=== PATIENT | female | born 1970 | race Caucasian/White ===

== ENCOUNTER → 2017-01-20 | Outpatient (CLI) | payer MEDICAID | LOC: MW.CHIM 13:24 | PROVIDERS: ATTEND Internal Medicine | DX: R07.9 Chest pain, unspecified (principal) | CPT/HCPCS: 93005 ==

== ENCOUNTER → 2017-01-27 | Outpatient (CLI) | payer MEDICAID, OTHER ==
--- NOTE | 2017-01-29 17:59 | ECHO ---
EXAM DATE: 01/27/17 The echocardiogram report can be seen in this patient's EMR (Electronic Medical Record) in the Reports section. RUSSELL
== END ==
LOC: MW.US 12:47
PROVIDERS: ATTEND Internal Medicine
DX: R07.89 Other chest pain (principal)
CPT/HCPCS: 93270; 93306

== ENCOUNTER 2017-02-03 08:48 | Day surgery (SDC) | payer MEDICAID ==
[~2017-02-03 08:48] MED LIST: Lactated Ringers 1,000 ML IV SCH; Lidocaine 2% 5 ML SDV ONE; Midazolam 1 MG/ML 2 ML SDV ONE; Ondansetron 4 MG/2 ML SDV ONE; Propofol 200 MG/20 ML SDV ONE; Sodium Chloride 0.9% 10 ML Syringe FLUSH PRN; Sodium Chloride 0.9% 2.5 ML Syringe FLUSH PRN; fentaNYL 250 MCG/5 ML SDV ONE
--- NOTE | 2017-02-03 09:47 | PCM.PREANE ---
Preanesthetic Assessment - Procedure Proposed Procedure: Hysteroscopy and endometrial ablation - Anesthesia/Transfusion/Family Hx Anesthesia History: Prior Anesthesia Without Reaction Family History of Anesthesia Reaction: No Transfusion History: No Prior Transfusion(s) Intubation History: Unknown - Review of Systems General: No Symptoms, Other (pigmentation glaucoma) Pulmonary: No Symptoms Cardiovascular: Palpitations (plus family hx of cardiac problems; currently Holter monitored) Gastrointestinal: No symptoms Neurological: No Symptoms Other: Reports: Easy Bleeding (uterine), Anxiety - Physical Assessment NPO Status Date: 02/02/17 NPO Status Time: 22:00 Height: 5 ft 2 in Weight: 155 lb ASA Class: 2 Mental Status: Alert & Oriented x3 Airway Class: Mallampati = 2 Dentition: Reports: Normal Dentition Thyro-Mental Finger Breadths: 3 Mouth Opening Finger Breadths: 3 ROM/Head Extension: Full Lungs: Clear to auscultation, Normal respiratory effort Cardiovascular: Regular Rate, Regular Rhythm, No Murmurs - Lab Values: Laboratory Last Values WBC 5.55 K/uL (4.0-11.0) 02/02/17 11:10 RBC 4.66 M/uL (4.30-5.90) 02/02/17 11:10 Hgb 13.5 g/dL (12.0-16.0) 02/02/17 11:10 Hct 42.3 % (36.0-46.0) 02/02/17 11:10 MCV 90.8 fL (80.0-98.0) 02/02/17 11:10 MCH 29.0 pg (27.0-32.0) 02/02/17 11:10 MCHC 31.9 g/dL (31.0-37.0) 02/02/17 11:10 RDW Std Deviation 45.6 fl (28.0-62.0) 02/02/17 11:10 RDW Coeff of Ish 14 % (11.0-15.0) 02/02/17 11:10 Plt Count 268 K/uL (150-400) 02/02/17 11:10 MPV 10.60 fL (7.40-12.00) 02/02/17 11:10 Nucleated RBC % 0.0 /100WBC 02/02/17 11:10 Nucleated RBCs # 0 K/uL 02/02/17 11:10 HCG, Quant < 1.2 mIU/mL 02/02/17 11:10 - Allergies Allergies/Adverse Reactions: Allergies Allergy/AdvReac Type Severity Reaction Status Date / Time No Known Allergies Allergy Verified 04/02/16 18:53 - Blood Blood Available: No Product(s) Available: None - Anesthesia Plan Pre-Op Medication Ordered: None - Acknowledgements Anesthesia Type Planned: General Anesthesia (LMA) Pt an Appropriate Candidate for the Planned Anesthesia: Yes Alternatives and Risks of Anesthesia Discussed w Pt/Guardian: Yes Pt/Guardian Understands and Agrees with Anesthesia Plan: Yes PreAnesthesia Questionnaire HEENT History: Reports: Other (see below) Other HEENT History: wears contacts/glasses Cardiovascular History: Reports: Other (see below) Other Cardiovascular History: pt states she "just found out she has a leaky heart valve", is presently on a holter monitor for 30 days. 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 Musculoskeletal History: Reports: Fracture Other Musculoskeletal History: hx fx foot Neurological History: Reports: Migraines - Past Surgical History Head Surgeries/Procedures: Reports: None GI Surgical History: Reports: Cholecystectomy Female Surgical History: Reports: D&C - SUBSTANCE USE Smoking Status *Q: Never Smoker Recreational Drug Use History: No - HOME MEDS Home Medications: Home Meds Latanoprost 1 drop EYEBOTH BEDTIME 04/02/16 [History] Levonorgestrel-Ethin Estradiol [Falmina-28 Tablet] 1 tab PO ASDIRECTED 01/30/17 [History] - CURRENT (IN HOUSE) MEDS Current Meds: Current Medications Lactated Ringer's (Ringers, Lactated) 1,000 mls @ 125 mls/hr IV ASDIRECTED PENDING SALE TO [facility] Last Admin: 02/03/17 09:20 Dose: 125 mls/hr Sodium Chloride (Saline Flush) 10 ml FLUSH ASDIRECTED PRN PRN Reason: Keep Vein Open Sodium Chloride (Saline Flush) 2.5 ml FLUSH ASDIRECTED PRN PRN Reason: Keep Vein Open Discontinued Medications Fentanyl (Sublimaze) Confirm Administered Dose 250 mcg .ROUTE .STK-MED ONE Stop: 02/03/17 07:10 Lidocaine (Xylocaine-Mpf 2%) Confirm Administered Dose 5 ml .ROUTE .STK-MED ONE Stop: 02/03/17 07:10 Midazolam HCl (Versed 1 Mg/Ml) Confirm Administered Dose 2 mg .ROUTE .STK-MED ONE Stop: 02/03/17 07:10 Ondansetron HCl (Zofran) Confirm Administered Dose 4 mg .ROUTE .STK-MED ONE Stop: 02/03/17 07:10 Propofol (Diprivan 20 Ml) Confirm Administered Dose 200 mg .ROUTE .STK-MED ONE Stop: 02/03/17 07:10
--- NOTE | 2017-02-03 10:49 | PCM.OPNOTE ---
- General Post-Op/Procedure Note Date of Surgery/Procedure: 02/03/17 Operative Procedure(s): Operative hysteroscopy/polypectomy/curretage of endometrium/thermal endometrial ablation Findings: left fundal polypoid lesion x 2 Pre Op Diagnosis: Menorrhagia and dysmenorrhea Post-Op Diagnosis: Same Anesthesia Technique: General LMA Primary Surgeon: Christa Russell Pathology: endometrial polyp x 2--left cornual region Fluid Replacement, Intraop: 1,100 (Fluid deficit 155 ml NS--hysteroscopy) EBL in mLs: 15 Complications: None known Condition: Good Free Text/Narrative:: Dictation [id number]
[2017-02-03] MEDS: fentaNYL 100 MCG/2 ML SDV IVPUSH PRN ×2 (11:00→11:06)
[2017-02-03] MEDS ORDERED: Ketorolac 30 MG/ML SDV IVPUSH ONE (11:04)
[2017-02-03] MEDS ORDERED: Ketorolac 30 MG/ML SDV ONE (11:08)
[2017-02-03] MEDS ORDERED: diphenhydrAMINE 50 MG/ML SDV IVPUSH ONE (11:19)
--- NOTE | 2017-02-03 11:25 | PCM.POSTAN ---
POST ANESTHESIA ASSESSMENT - MENTAL STATUS Mental Status: alert, oriented - RESPIRATORY Respiratory Status: respiratory rate WNL, airway patent, O2 saturation stable - CARDIOVASCULAR CV Status: pulse rate WNL, blood pressure stable - GASTROINTESTINAL GI Status: no symptoms - PAIN Pain Score: 2 - POST OP HYDRATION Hydration Status: adequate & stable - OBSERVATIONS Free Text/Narrative:: no anesthesia problems
[2017-02-03 13:19] VITALS: BP 92/50
--- NOTE | 2017-02-04 12:08 | OR ---
SURGEON: Christa Russell M.D. DATE OF PROCEDURE: 02/03/2017 PREOPERATIVE DIAGNOSIS: Menorrhagia and dysmenorrhea. POSTOPERATIVE DIAGNOSIS: Menorrhagia and dysmenorrhea. PROCEDURE: Operative hysteroscopy with polypectomy, curettings of endometrium, and thermal endometrial ablation. ANESTHESIA: General LMA. ESTIMATED BLOOD LOSS: 15 mL. FLUIDS: 1100 mL crystalloid. Fluid deficit 155 mL normal saline. COMPLICATIONS: None. DISPOSITION: The patient to PACU, stable. INDICATIONS: Judith is a 46-year-old female, who is having ongoing difficulties with menorrhagia and dysmenorrhea. She has a benign endometrial biopsy, and sonohysterogram reveals a posterior polypoid lesion. Therefore, she would like to undergo surgical evaluation for hysteroscopy polypectomy, and at that time, she would like to undergo thermal endometrial ablation. Risks of procedures have been discussed. Proper consent obtained. The patient was taken to the operating room, where she underwent general LMA, was placed in modified dorsal lithotomy position, was prepped and draped in the usual sterile fashion. SCDs to lower extremities. The bladder was drained. Time-out was performed. A speculum was introduced in the vagina. The posterior lip of the cervix was grasped with an Allis clamp. The cervix was sounded to be approximately 4 cm in total length. The endometrial cavity sounded to 8 cm. The cervix was gently dilated to 5 mm. MyoSure hysteroscope was now introduced using normal saline as the distention media. The uterine cavity was able to be visualized. The right and left ostia were able to be visualized. There was a left ostial polypoid lesion x2 noted, and along the mid fundal region, there is just a proliferative thickened endometrium. Using MyoSure resecting device, the polyps were now removed followed by curettings of the remainder of the endometrium. All the specimen will be sent to pathology. Photographs taken post polypectomy. The MyoSure hysteroscope was now gently removed. The cervix was dilated to 8 mm. The Christina device was now prepped according to home care liaison protocol. The length was set to 4 and the device was now introduced into the uterine cavity. The fundus initially was not able to gauge the length in the green zone. Therefore, removed the device, reset the gauge and once again could not get a clear. Proceeding therefore, I removed the device once again, reset the length, which was felt to be accurate and turned the monitor off and turned it back on again with resetting the device and now introducing into the uterine cavity to the level of the fundus and insufflating the balloon, the device was cleared to proceed with the ablation. The 120 seconds ablative process now ensued. At the end of this, the balloon was desufflated. Device collapsed and removed from the endometrial cavity. Hemostasis appears evident. All instruments removed from the vagina. Sponge count and instrument count correct x2. The patient has tolerated the procedure well. She will go to PACU in stable condition. Specimens to pathology. QUYEN / TIGIST /[id number]
== END 2017-02-03 12:35 | disposition home or self-care (01) ==
LOC: MW.SDS 08:48
PROVIDERS: ATTEND Obstetrics & Gynecology
DX: N84.0 Polyp of corpus uteri (principal); Z90.49 Acquired absence of other specified parts of digestive tract; Z79.899 Other long term (current) drug therapy
CPT/HCPCS: 36415; 58563; 84702; 85027; J1885; J2250; J2405; J3010; J7120; 00952; 88305; J2704

== ENCOUNTER → 2017-02-05 | Outpatient (CLI) | payer MEDICAID, OTHER ==
--- NOTE | 2017-02-05 08:14 | PCM.PRNOTE ---
- Free Text/Narrative Note: Exercise MIBI Indication CP Sestamibi Tc99 25 MCi was given at the peak HR Patient was brought to the stress test lab in postabsorptive state verbal and paper consent was obtained from patient Vital signs at resting state blood pressure of 104/78 with a heart rate of 97 EKG shows sinus rhythm no ST changes no Q waves Maximal heart rate of 174 and target heart rate is 147 Patient reached the target heart rate, completed stage III Sorin protocol Peak blood pressure is 134/74 Total exercise time of 9.[address] changes with a peak heart rate no arrhythmia METS 10.1 No symptom of chest pain or feeling dizzy Impression Normal hemodynamics, normal chronotropic, adequate exercise capacity, negative for ischemia on EKG Plan Nuclear portion pending
--- NOTE | 2017-02-05 13:54 | NM ---
EXAMINATION: Nuclear medicine myocardial perfusion study with exercise stress test. HISTORY: Chest pain. PROCEDURE: Patient exercised according to Sorin protocol for 9 minutes and 33 seconds and achieved maximal hear t rate of 174 beats per minute. Adequate exercise. Following intravenous administration of 25.9 mCi of technetium 99m sestamibi, stress and rest SPECT images including gating imaging was performed. FINDINGS: Stress and rest myocardial SPECT images demonstrates uniform tracer uptake throughout the left ventr icular myocardium. Review of gated images demonstrates normal wall motion, contractility and wall thickening. The left ventricular ejection fraction is 71 %. The left ventricular chamber size is normal. IMPRESSION: 1. No evidence of myocardial ischemia. 2. Normal ventricular chamber size and function with ejection fraction of 71 %.
== END ==
LOC: MW.NM 07:27
PROVIDERS: ATTEND Internal Medicine
DX: R07.89 Other chest pain (principal)
CPT/HCPCS: 78451; 93017; A9500

== ENCOUNTER → 2017-02-09 | Outpatient (CLI) | payer MEDICAID, OTHER ==
--- NOTE | 2017-02-10 09:52 | CR ---
EXAMINATION: Left ankle HISTORY: Injury COMPARISON: None TECHNIQUE: 3 views FINDINGS/IMPRESSION: No acute osseous abnormality, dislocation, or fracture identified. Bone mineral ization and joint spaces appear normal. Mild soft tissue swelling is noted over the lateral malleolu s.
== END | disposition home or self-care (01) ==
LOC: MW.CHFP 15:03
PROVIDERS: ATTEND Physician Assistant
DX: S99.912A Unspecified injury of left ankle, initial encounter (principal); M25.572 Pain in left ankle and joints of left foot; M79.89 Other specified soft tissue disorders
CPT/HCPCS: 73610-26-LT; 73610-LT

== ENCOUNTER 2021-07-09 07:14 | Day surgery (SDC) | payer BC ==
[~2021-07-09 07:14] MED LIST changes: -Lidocaine 2% 5 ML SDV ONE; -Midazolam 1 MG/ML 2 ML SDV ONE; -Ondansetron 4 MG/2 ML SDV ONE; -Propofol 200 MG/20 ML SDV ONE; +Sodium Chloride 0.9% 10 ML SDV IV PRN; -fentaNYL 250 MCG/5 ML SDV ONE
[2021-07-09] MEDS ORDERED: Propofol 200 MG/20 ML SDV ONE (07:47)
--- NOTE | 2021-07-09 07:47 | PCM.PREANE ---
Preanesthetic Assessment - Procedure Proposed Procedure: Colonoscopy - Anesthesia/Transfusion/Family Hx Anesthesia History: Prior Anesthesia Without Reaction Family History of Anesthesia Reaction: No Transfusion History: No Prior Transfusion(s) Intubation History: Unknown - Review of Systems General: No Symptoms Pulmonary: No Symptoms Cardiovascular: No Symptoms Gastrointestinal: No Symptoms (Occas HB- PRN Prilosec) Neurological: No Symptoms Other: Reports: None - Physical Assessment NPO Status Date: 07/07/21 NPO Status Time: 18:00 (Solids, >8Hr Liq) Height: 5 ft 2 in Weight: 80.286 kg (Obesity) ASA Class: 2 Mental Status: Alert & Oriented x3 Airway Class: Mallampati = 2 Dentition: Reports: Normal Dentition Thyro-Mental Finger Breadths: 3 Mouth Opening Finger Breadths: 3 ROM/Head Extension: Full Lungs: Clear to Auscultation, Normal Respiratory Effort Cardiovascular: Regular Rate, Regular Rhythm - Lab Values: Laboratory Last Values Urine HCG, Qual NEGATIVE (NEGATIVE) 07/09/21 07:24 - Allergies Allergies/Adverse Reactions: Allergies Allergy/AdvReac Type Severity Reaction Status Date / Time No Known Allergies Allergy Verified 07/03/21 14:23 - Acknowledgements Anesthesia Type Planned: General Anesthesia Pt an Appropriate Candidate for the Planned Anesthesia: Yes Alternatives and Risks of Anesthesia Discussed w Pt/Guardian: Yes Pt/Guardian Understands and Agrees with Anesthesia Plan: Yes PreAnesthesia Questionnaire HEENT History: Reports: Glaucoma Other HEENT History: wears contacts/glasses Cardiovascular History: Reports: None Respiratory History: Reports: None Gastrointestinal History: Reports: Cholelithiasis, GERD Other Gastrointestinal History: takes occasional OTC Prilosec for GERD Genitourinary History: Reports: None 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: , 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 Musculoskeletal History: Reports: Fracture Other Musculoskeletal History: hx fx foot Neurological History: Reports: Other (See Below) Other Neuro History: hx of motion sickness Psychiatric History: Reports: Anxiety, Other (See Below) Other Psychiatric History: Claustrophobia Endocrine/Metabolic History: Reports: Obesity/BMI 30+ Hematologic History: Reports: None Immunologic History: Reports: None Oncologic (Cancer) History: Reports: None Dermatologic History: Reports: None - Past Surgical History Head Surgeries/Procedures: Reports: None Cardiovascular Surgical History: Reports: None Respiratory Surgical History: Reports: None GI Surgical History: Reports: Cholecystectomy Female Surgical History: Reports: D&C, Other (See Below) Other Female Surgeries/Procedures: Hysteroscopy Endocrine Surgical History: Reports: None Musculoskeletal Surgical History: Reports: None Oncologic Surgical History: Reports: None Dermatological Surgical History: Reports: None - SUBSTANCE USE Tobacco Use Status *Q: Never Tobacco User Recreational Drug Use History: No - HOME MEDS Home Medications: Home Meds Latanoprost 1 drop EYEBOTH BEDTIME 04/02/16 [History] Cholecalciferol (Vitamin D3) [Decara] 1,250 mcg PO WEEKLY 07/03/21 [History] Dorzolamide HCl/Pf [Dorzolamide 2% Eye Drop] 1 drop EYELF BID 07/03/21 [History] Multivitamin 1 tab PO DAILY 07/03/21 [History] Phentermine HCl 15 mg PO DAILY 07/03/21 [History] Timolol Maleate/PF [Timolol Maleate 0.5% Eye Drop] 1 drop EYELF BID 07/03/21 [History] Topiramate [Topiramate ER] 50 mg PO BID 07/03/21 [History] buPROPion [Wellbutrin SR] 150 mg PO DAILY 07/03/21 [History] traZODone HCl [Trazodone HCl] 25 mg PO BEDTIME 07/03/21 [History] - CURRENT (IN HOUSE) MEDS Current Meds: Current Medications Lactated Ringer's (Ringers, Lactated) 1,000 mls @ 125 mls/hr IV ASDIRECTED [facility]CY Sodium Chloride (Sodium Chloride 0.9% 10 Ml Syringe) 10 ml FLUSH ASDIRECTED PRN PRN Reason: Keep Vein Open Sodium Chloride (Sodium Chloride 0.9% 2.5 Ml Syringe) 2.5 ml FLUSH ASDIRECTED PRN PRN Reason: Keep Vein Open Sodium Chloride (Sodium Chloride 0.9% 10 Ml Syringe) 10 ml FLUSH ASDIRECTED PRN PRN Reason: Keep Vein Open Sodium Chloride (Sodium Chloride 0.9% 2.5 Ml Syringe) 2.5 ml FLUSH ASDIRECTED PRN PRN Reason: Keep Vein Open Sodium Chloride (Sodium Chloride 0.9% 10 Ml Sdv) 10 ml IV ASDIRECTED PRN PRN Reason: IV Use
[2021-07-09] MEDS ORDERED: Midazolam 1 MG/ML 2 ML SDV ONE (07:48)
--- NOTE | 2021-07-09 10:29 | PCM.OPNOTE ---
- General Post-Op/Procedure Note Date of Surgery/Procedure: 07/09/21 Operative Procedure(s): Screening colonoscopy Findings: Normal colonoscopy Pre Op Diagnosis: Screening colonoscopy Post-Op Diagnosis: Normal colonoscopy Anesthesia Technique: MAC Primary Surgeon: Michelle Duarte Condition: Good
[2021-07-09 10:39] VITALS: PULSE 66
--- NOTE | 2021-07-09 10:44 | PCM.POSTAN ---
POST ANESTHESIA ASSESSMENT - MENTAL STATUS Mental Status: Alert, Oriented - VITAL SIGNS Vital Signs: Last Vital Signs Temp 97.3 F 07/09/21 07:22 Pulse 66 07/09/21 10:38 Resp 15 07/09/21 10:38 BP 98/59 L 07/09/21 10:38 Pulse Ox 99 07/09/21 10:38 - RESPIRATORY Respiratory Status: Respiratory Rate WNL, Airway Patent, O2 Saturation Stable - CARDIOVASCULAR CV Status: Pulse Rate WNL, Blood Pressure Stable - GASTROINTESTINAL GI Status: No Symptoms - PAIN Pain Score: 0 - POST OP HYDRATION Hydration Status: Adequate & Stable
--- NOTE | 2021-07-09 10:45 | PCM48HPAN ---
Post Anesthesia Note - EVALUATION WITHIN 48HRS OF ANESTHETIC Vital Signs in Normal Range: Yes Patient Participated in Evaluation: Yes Respiratory Function Stable: Yes Airway Patent: Yes Cardiovascular Function Stable: Yes Hydration Status Stable: Yes Pain Control Satisfactory: Yes Nausea and Vomiting Control Satisfactory: Yes Mental Status Recovered: Yes Vital Signs: Last Vital Signs Temp 97.3 F 07/09/21 07:22 Pulse 66 07/09/21 10:38 Resp 15 07/09/21 10:38 BP 98/59 L 07/09/21 10:38 Pulse Ox 99 07/09/21 10:38 - COMMENTS/OBSERVATIONS Free Text/Narrative:: Pt doing well post-op. VSS. No apparent anesthetic complications. Dr. Greg Corral
[2021-07-09 10:47] VITALS: BP 95/56
--- NOTE | 2021-07-09 12:47 | OR ---
SURGEON: MICHELLE DUARTE MD DATE OF PROCEDURE: 07/09/2021 PREOPERATIVE DIAGNOSIS: Screening colonoscopy. POSTOPERATIVE DIAGNOSIS: Screening colonoscopy. PROCEDURE PERFORMED: Screening colonoscopy. PRIMARY SURGEON: Michelle Duarte MD ANESTHESIA: MAC. INSTRUMENT USED: Olympus colonoscope. EXTENT OF THE EXAM: To the cecum. PREPARATION: Good. LIMITATIONS: None. INDICATIONS FOR EXAMINATION: The patient is a 50-year-old female who presents for screening colonoscopy. I explained the procedure, expected perioperative course, and the risks. She verbalized understanding and wishes to proceed. PROCEDURE IN DETAIL: The patient was brought to the endoscopy suite and placed in the left lateral decubitus position. A time-out was completed verifying the patient's name, age, date of , allergies, and procedure to be performed. Monitored anesthesia care was induced and continuous oxygen was provided via nasal cannula throughout the procedure. After adequate sedation was achieved, a digital rectal exam was performed. This exam was within normal limits. A well-lubricated colonoscope was inserted in the rectum and advanced under direct visualization to the level of the cecum. The cecum was identified by both visual and anatomic landmarks. A photograph was taken of the cecal cap; however, I was unable to retroflex the scope within the cecum due to looping of the scope within the sigmoid colon. The scope was then fully withdrawn while examining the color, texture, anatomy, and integrity of the mucosa from the cecum to the anal canal. The findings were consistent with normal colonic mucosa. The scope was brought into the rectum and retroflexed to allow visualization of the anal canal opening. This appeared normal and photograph was taken. The scope was then straightened out and fully withdrawn. The cecum to anus time was 7 minutes. The patient tolerated the procedure well, was transferred to the PACU in stable condition. ENDOSCOPIC DIAGNOSIS: Normal colonoscopy. RECOMMENDATIONS: Follow up in clinic in 10 years. TINY / TIGIST /[id number]
== END 2021-07-09 11:05 | disposition home or self-care (01) ==
LOC: MW.SDS 07:14
PROVIDERS: ATTEND Surgery
DX: Z12.11 Encounter for screening for malignant neoplasm of colon (principal); E66.9 Obesity, unspecified; Z79.899 Other long term (current) drug therapy; Z90.49 Acquired absence of other specified parts of digestive tract; Z98.890 Other specified postprocedural states; Z68.32 Body mass index [BMI] 32.0-32.9, adult
CPT/HCPCS: 45378; 81025; J2250; J2704; J7120

== ENCOUNTER 2021-09-19 13:35 | Emergency (ER) | payer BC ==
[2021-09-19] MEDS ORDERED: Orphenadrine 60 MG/2 ML Inj IM ONE (14:29)
[2021-09-19] MEDS ORDERED: Ketorolac 60 MG/2 ML SDV IM ONE (14:29)
--- NOTE | 2021-09-19 15:05 | EDM.PDOC ---
ED HPI GENERAL MEDICAL PROBLEM - General Chief Complaint: General Stated Complaint: PINCHED NERVE NECK Time Seen by Provider: 09/19/21 13:39 Source of Information: Reports: Patient History Limitations: Reports: No Limitations - History of Present Illness INITIAL COMMENTS - FREE TEXT/NARRATIVE: HISTORY AND PHYSICAL: History of present illness: Patient is a 51-year-old female who presents to the emergency room with complaints of left lateral neck pain since waking up. She states last night she felt a pinching sensation to the left posterior and lateral neck which she describes as "felt like something was getting cut off". She states the pain was sharp and lasted 2 to 3 minutes. She had to pace around the living room until up subsided. Patient denies any fever, chills, headache, change in vision, syncope or near syncope. Denies any chest pain, back pain, shortness of breath or cough. Denies any abdominal pain, nausea, vomiting, diarrhea, constipation or dysuria. Has not noted any blood in urine or stool. Patient has been eating and drinking appropriately. No recent travel or sick contacts. Review of systems: As per history of present illness and below otherwise all systems reviewed and negative. Past medical history: As per history of present illness and as reviewed below otherwise noncontributory. Surgical history: As per history of present illness and as reviewed below otherwise noncontributory. Social history: See social history for further information Family history: As per history of present illness and as reviewed below otherwise noncontr ibutory. Physical exam: General: Well developed and well nourished. Alert and orientated x 3. Nontoxic in appearance and in no acute distress. Vital signs are stable and have been reviewed by me. Nursing notes were reviewed. HEENT: Atraumatic, normocephalic, pupils equal and reactive bilaterally, negative for conjunctival pallor or scleral icterus, mucous membranes moist, TMs normal bilaterally, throat clear, neck supple, nontender, trachea midline. No drooling or trismus noted. No meningeal signs. No hot potato voice noted. Lungs: Clear to auscultation bilaterally. No wheezes, rales, or rhonchi. Chest nontender. Normal work of breathing, no accessory muscles used. Heart: S1S2, regular rate and rhythm without overt murmur, gallops, or rubs. No JVD. No peripheral edema Abdomen: Soft, nondistended, nontender. Normoactive bowel sounds. Negative for masses or costovertebral tenderness. C-spine/Back: No pinpoint vertebral tenderness upon palpation. No crepitus, step-offs or obvious deformities. Mild/moderate pain of left paraspinous cervical neck into the sternocleidomastoid muscle. Patient is ambulatory into the emergency room without difficulty or deficit. Able to rock back on heels and walk on toes. Denies any urinary or fecal incontinence. Denies any numbness, tingling or saddle paresthesia. No concerns of serious infection, fracture or cord compression, or cauda equina syndrome. Deep tendon reflexes brisk bilaterally. Skin: Intact, warm, dry. No lesions or rashes noted. Hematologic: No petechiae or purpra. Mucosa appropriate color and normal nail bed color and refill. Extremities: Atraumatic, moves all extremities per self without deficits, able to rotate at shoulder without problems. Pain with movement of the neck side to side or up and down. Neurovascular unremarkable. Neuro: Awake, alert, oriented. Cranial nerves II through XII unremarkable. Cerebellum unremarkable. Motor and sensory unremarkable throughout. Exam nonfocal. Psychiatric: Mood and affect are appropriate. Normal thought process. Answering questions appropriately. Please note that the patient was seen and evaluated during the 2019 SARS-CoV-2 novel coronavirus pandemic period. Community viral transmission is ongoing at time of this encounter and the emergency department is operating under pandemic response procedures. Medical Decision Making: Patient is a 51-year-old female who presents to the emergency room with complaints of left sided neck pain. Pain with range of motion describes it as a sharp pinching spasm. We discussed imaging, she would like to move forward with a CT scan at this time. No neurological symptoms are noted. CT shows no acute fracture or traumatic malalignment of the cervical spine. Mild disc space narrowing at C5-C6. Moderate neural foraminal narrowing on the right at C5-C6. I have talked with the patient about today's findings, in addition to providing specific details for plan of care. Patient does feel improvement after IM medications. Reassessment at the time of disposition demonstrates that the patient is in no acute distress. The patient is stable for discharge, counseling was provided and we discussed in great detail signs and symptoms that would prompt them to return to the Emergency Department. Medication, follow up and supportive care measures were reviewed and discussed. Voices understanding and is agreeable to plan of care. Denies any further questions or concerns at this time. Diagnostics: CT neck Therapeutics: Norflex, Toradol Prescription: Flexeril, diclofenac Impression: Muscle strain, neck Plan: 1. You were evaluated today on an emergent basis. The medication you received today does cause drowsiness, so do not drive for the remaining day. The CT shows no acute fracture or malalignment of the cervical spine. You do have some narrowing at C5-C6, just for your information in the future if you continue to have problems. 2. When resting please lay on a flat firm surface. Limit your immobility to prevent muscle stiffness. Get up to ambulate/move around/gentle stretching multiple times throughout the day. May alternate heat and ice to the painful areas 3. Tylenol as needed for back pain. Otherwise take the prescribed Flexeril and diclofenac as directed. Diclofenac is an anti-inflammatory so do not take any additional NSAIDs with this medication, such as ibuprofen or Aleve. Flexeril as a muscle relaxant, this medication may cause drowsiness a do not take it will driving her needing to be functioning outside of the house. 4. Please follow-up with your primary care provider as we discussed. Return to the ED as needed and as discussed. Definitive disposition and diagnosis as appropriate pending reevaluation and review of above. left neck Pain Score (Numeric/FACES): 10 - Related Data Allergies Allergy/AdvReac Type Severity Reaction Status Date / Time No Known Allergies Allergy Verified 09/19/21 13:59 Home Meds: Home Meds Latanoprost 1 drop EYEBOTH BEDTIME 04/02/16 [History] Cholecalciferol (Vitamin D3) [Decara] 1,250 mcg PO WEEKLY 07/03/21 [History] Dorzolamide HCl/Pf [Dorzolamide 2% Eye Drop] 1 drop EYELF BID 07/03/21 [History] Multivitamin 1 tab PO DAILY 07/03/21 [History] Timolol Maleate/PF [Timolol Maleate 0.5% Eye Drop] 1 drop EYELF BID 07/03/21 [History] traZODone HCl [Trazodone HCl] 25 mg PO BEDTIME 07/03/21 [History] Cyclobenzaprine [Flexeril] 10 mg PO TID PRN #21 tab 09/19/21 [Rx] Diclofenac Sodium [Voltaren] 75 mg PO BIDMEALS PRN #30 tab.cr 09/19/21 [Rx] Past Medical History HEENT History: Reports: Glaucoma Other HEENT History: wears contacts/glasses Cardiovascular History: Reports: None Respiratory History: Reports: None Gastrointestinal History: Reports: Cholelithiasis, GERD Other Gastrointestinal History: takes occasional OTC Prilosec for GERD Genitourinary History: Reports: None 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: , 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 Musculoskeletal History: Reports: Fracture Other Musculoskeletal History: hx fx foot Neurological History: Reports: Other (See Below) Other Neuro History: hx of motion sickness Psychiatric History: Reports: Anxiety, Other (See Below) Other Psychiatric History: Claustrophobia Endocrine/Metabolic History: Reports: Obesity/BMI 30+ Hematologic History: Reports: None Immunologic History: Reports: None Oncologic (Cancer) History: Reports: None Dermatologic History: Reports: None - Infectious Disease History Infectious Disease History: Reports: Chicken Pox - Past Surgical History Head Surgeries/Procedures: Reports: None HEENT Surgical History: Reports: None Cardiovascular Surgical History: Reports: None Respiratory Surgical History: Reports: None GI Surgical History: Reports: Cholecystectomy Female Surgical History: Reports: D&C, Endometrial Ablation, Other (See Below) Endocrine Surgical History: Reports: None Neurological Surgical History: Reports: None Musculoskeletal Surgical History: Reports: None Oncologic Surgical History: Reports: None Dermatological Surgical History: Reports: None Social & Family History - Family History Family Medical History: No Pertinent Family History - Caffeine Use Caffeine Use: Reports: None - Recreational Drug Use Recreational Drug Use: No ED ROS GENERAL - Review of Systems Review Of Systems: Comprehensive ROS is negative, except as noted in HPI. ED EXAM, GENERAL - Physical Exam Exam: See Below (See dictation) Course - Vital Signs Last Recorded V/S: Last Vital Signs Temp 97.7 F 09/19/21 13:56 Pulse 82 09/19/21 13:56 Resp 18 09/19/21 13:56 BP 110/60 09/19/21 13:56 Pulse Ox 98 09/19/21 13:56 - Orders/Labs/Meds Meds: Medications Discontinued Medications Generic Name Dose Route Start Last Admin Trade Name Freq PRN Reason Stop Dose Admin Ketorolac Tromethamine 60 mg 09/19/21 14:29 09/19/21 14:42 Ketorolac 60 Mg/2 Ml Sdv IM 09/19/21 14:30 60 mg ONETIME ONE Administration Orphenadrine Citrate 60 mg 09/19/21 14:29 09/19/21 14:44 Orphenadrine 60 Mg/2 Ml Inj IM 09/19/21 14:30 60 mg ONETIME ONE Administration Departure - Departure Time of Disposition: 16:24 Disposition: Home, Self-Care 01 Clinical Impression: Acute strain of neck muscle Qualifiers: Encounter type: initial encounter Qualified Code(s): S16.1XXA - Strain of muscle, fascia and tendon at neck level, initial encounter - Discharge Information Prescriptions: Cyclobenzaprine [Flexeril] 10 mg PO TID PRN #21 tab PRN Reason: Muscle Spasm Diclofenac Sodium [Voltaren] 75 mg PO BIDMEALS PRN #30 tab.cr PRN Reason: Pain Instructions: Muscle Strain, [id number] Referrals: PCP,None [Primary Care Provider] - Forms: ED Department Discharge Additional Instructions: The following information is given to patients seen in the emergency department who are being discharged to home. This information is to outline your options for follow-up care. We provide all patients seen in our emergency department with a follow-up referral. The need for follow-up, as well as the timing and circumstances, are variable de pending upon the specifics of your emergency department visit. If you don't have a primary care physician on staff, we will provide you with a referral. We always advise you to contact your personal physician following an emergency department visit to inform them of the circumstance of the visit and for follow-up with them and/or the need for any referrals to a consulting specialist. The emergency department will also refer you to a specialist when appropriate. This referral assures that you have the opportunity for follow-up care with a specialist. All of these measure are taken in an effort to provide you with optimal care, which includes your follow-up. Under all circumstances we always encourage you to contact your private physician who remains a resource for coordinating your care. When calling for follow-up care, please make the office aware that this follow-up is from your recent emergency room visit. If for any reason you are refused follow-up, please contact the [facility] Emergency Department at and asked to speak to the emergency department charge nurse. [facility] [address] [place] [address] [facility] [address] [place] [address] Thank you for choosing the [facility] emergency department in [place] for your medical needs today. It was a pleasure caring for you. Today you were seen in the emergency department for neck pain. 1. You were evaluated today on an emergent basis. The medication you received today does cause drowsiness, so do not drive for the remaining day. The CT shows no acute fracture or malalignment of the cervical spine. You do have some narrowing at C5-C6, just for your information in the future if you continue to have problems. 2. When resting please lay on a flat firm surface. Limit your immobility to prevent muscle stiffness. Get up to ambulate/move around/gentle stretching multiple times throughout the day. May alternate heat and ice to the painful areas 3. Tylenol as needed for back pain. Otherwise take the prescribed Flexeril and diclofenac as directed. Diclofenac is an anti-inflammatory so do not take any additional NSAIDs with this medication, such as ibuprofen or Aleve. Flexeril as a muscle relaxant, this medication may cause drowsiness a do not take it will driving her needing to be functioning outside of the house. 4. Please follow-up with your primary care provider as we discussed. Return to the ED as needed and as discussed. Sepsis Event Note (ED) - Evaluation Sepsis Screening Result: No Definite Risk - Focused Exam Vital Signs: Vital Signs Temp Pulse Resp BP Pulse Ox 09/19/21 13:56 97.7 F 82 18 110/60 98
--- NOTE | 2021-09-19 16:18 | CT ---
Indication: Left-sided neck pain, limited range of motion. Technique: CT of the cervical spine without IV contrast. Coronal and sagittal reconstructions. Comparison: None. Findings: No acute fracture or traumatic malalignment of the cervical spine. Vertebral body heights are well maintained. Trace retrolisthesis of C4 on C5. Mild disc space narrowing at C5-C6. Moderate neuroforaminal narrowing on the right at C5-C6. No significant spinal canal stenosis. No prevertebral soft tissue swelling. Visualized intracranial contents are unremarkable. The mastoid air cells are clear. The thyroid gland is normal in appearance. The lung apices are clear. Impression: 1. No acute fracture or traumatic malalignment of the cervical spine. 2. Mild disc space narrowing at C5-C6. 3. Moderate neural foraminal narrowing on the right at C5-C6. Please note that all CT scans at this facility use dose modulation, iterative reconstruction, and/or weight-based dosing when appropriate to reduce radiation dose to as low as reasonably achievable. Dictated by Kasandra Engel MD @ 09/19/2021 4:16:51 PM (Electronically Signed)
[2021-09-19 16:44] VITALS: BP 114/63; PULSE 79
== END 2021-09-19 16:45 | disposition home or self-care (01) ==
LOC: MW.ED 13:35
DX: S16.1XXA Strain of muscle, fascia and tendon at neck level, initial encounter (principal); E66.9 Obesity, unspecified; Z68.31 Body mass index [BMI] 31.0-31.9, adult; X50.1XXA Overexertion from prolonged static or awkward postures, initial encounter
CPT/HCPCS: 72125; 96372; 99283; J1885; J2360

== ENCOUNTER 2024-04-10 07:13 | Emergency (ER) | payer BC, MEDICAID ==
[2024-04-10] MEDS: Ondansetron 4 MG Tab.DIS PO ONE (07:47)
[2024-04-10] MEDS: oxyCODONE 5 MG Tab PO ONE (07:47)
[2024-04-10 09:24] VITALS: BP 125/78; PULSE 71
== END 2024-04-10 09:12 | disposition home or self-care (01) ==
LOC: MW.ED 07:13
DX: S52.135A Nondisplaced fracture of neck of left radius, initial encounter for closed fracture (principal); K21.9 Gastro-esophageal reflux disease without esophagitis; Z79.899 Other long term (current) drug therapy; Z90.49 Acquired absence of other specified parts of digestive tract; W01.0XXA Fall on same level from slipping, tripping and stumbling without subsequent striking against object, initial encounter
CPT/HCPCS: 29105; 73080; 73090; 73110; 99283; A9270